=== PATIENT | male | born 1955 | race African-American/Black ===

== ENCOUNTER 2017-05-29 18:46 | Observation (INO) | payer OTHER ==
[~2017-05-29] VITALS: Ht 172.7 cm; Wt 114.0 kg
[~2017-05-29 18:46] MED LIST: ANALGESIC325 M1 PO; ASPIRIN325 MG PO; AUGMENTIN875 MG PO; Colace PO; ERYTHROMYC1 APPLICAT RIGHT EYE; Ecotrin PO; Tylenol Regular Stre PO; ZESTRIL,PRINIVI20 MG PO; Zestril,Prinivil PO
[2017-05-29 19:53] LABS: HEMATOCRIT 40.8 % (38.0-50.0); MCH 30.8 PG (29.0-34.0); MCHC 34.6 G/DL (30.0-36.0); MCV 89.1 FL (86-99); PLATELET COUNT 274 K/uL (156-360); RBC DIS.WIDTH-CV 12.9 % (11.8-14.6); RBC DIS.WIDTH-SD 42.1 % (39-53); RED BLOOD COUNT 4.58 M/uL (4.00-5.50)
[2017-05-29 20:04] LABS: CHLORIDE 104 mEq/L (99-109); POTASSIUM 3.6 mEq/L (3.7-5.4); SODIUM 138 mEq/L (136-147)
[2017-05-29 20:05] LABS: MAGNESIUM 2.1 mg/dL (1.3-2.7)
[2017-05-29 20:06] LABS: GLUCOSE 110 mg/dL (70-99)
[2017-05-29 20:07] LABS: ANION GAP 10 MEQ/L (2-14)
[2017-05-29 20:10] LABS: GFR ESTIMATE (CALCULATED) > 59 mL/min/
[2017-05-29 20:11] LABS: UREA NITROGEN (BUN) 25 mg/dL (9-23)
[2017-05-29 20:16] LABS: TROP-I INTERPRETATION NEGATIVE; TROPONIN-I < 0.01 ng/mL (0.0-0.30)
[2017-05-29 20:42] LABS: CREATINE KINASE 173 IU/L (1-294)
[2017-05-29 21:09] LABS: D-DIMER ELISA < 150.00 ng/mLDDU (<230)
[2017-05-29] MEDS ORDERED: ZESTORETIC 20-1 EAC1 PO (21:10)
[2017-05-29] MEDS ORDERED: ADVIL200 MG PO (21:14)
[2017-05-29 21:17] LABS: TOTAL BILIRUBIN 0.3 mg/dL (0.0-1.0)
[2017-05-29 21:18] LABS: ALKALINE PHOSPHATASE 52 IU/L (3-129); SERUM ETHYL ALCOHOL < 10 mg/dL
[2017-05-29 21:20] LABS: DIRECT BILIRUBIN 0.1 mg/dL (0.0-0.3)
[2017-05-29 23:20] VITALS: BP 145/79
[2017-05-30 02:49] LABS: TROP-I INTERPRETATION NEGATIVE; TROPONIN-I < 0.01 ng/mL (0.0-0.30)
[2017-05-30 03:09] LABS: ADD MIUA? NO; BILIRUBIN NEGATIVE; BLOOD NEGATIVE; COLOR STRAW ((YELLOW)); GLUCOSE (STRIP) NEGATIVE; KETONES NEGATIVE; LEUKOCYTES NEGATIVE; NITRITE NEGATIVE; PROTEIN (STRIP) NEGATIVE; SPECIFIC GRAVITY 1.026 (1.000-1.030); UROBILINOGEN 0.2 MG/DL (0.2-1.0)
[2017-05-30 03:44] LABS: HDL CHOLESTEROL 46 MG/DL (Desirable>=40); LDL CHOLESTEROL 102 mg/dL (Desirable<100); NON-HDL CHOLESTEROL 109 mg/dL (Desirable<160); TOTAL CHOLESTEROL 155 mg/dL (Desirable<200); TRIGLYCERIDES 35 MG/DL (Normal: <150)
[2017-05-30 03:48] LABS: AMPHETAMINES QUANT VALUE 0 NG/ML; BARBITUATES QUANT VALUE 0 NG/ML; BENZODIAZEPINES QUANT VALUE 0 NG/ML; BENZODIAZEPINES, URINE SCREEN Negative (200 ng/mL); MARIJUANA QUANT VALUE 0 NG/ML; OPIATES QUANTITATIVE VALUE 0 NG/ML; PHENCYCLIDINE QUANT VALUE 0 NG/ML
[2017-05-30 04:30] VITALS: BP 122/71
[2017-05-30 08:02] VITALS: BP 127/72
[2017-05-30 08:32] LABS: TROP-I INTERPRETATION NEGATIVE; TROPONIN-I < 0.01 ng/mL (0.0-0.30)
[2017-05-30 11:54] VITALS: BP 117/67
== END 2017-05-30 16:06 | disposition home or self-care (01) ==
LOC: EME 18:46 → EDOF 20:49 → 5WEST 20:49 → EDOF 20:49 → ENRESERV 20:50 → 5WEST 23:11
PROVIDERS: Physician Assistant; Physician Assistant Medical
DX: R55 Syncope and collapse (principal); R07.9 Chest pain, unspecified; R00.1 Bradycardia, unspecified; I10 Essential (primary) hypertension; E78.5 Hyperlipidemia, unspecified; Z86.73 Personal history of transient ischemic attack (TIA), and cerebral infarction without residual deficits; G47.33 Obstructive sleep apnea (adult) (pediatric); Z91.19 Patient's noncompliance with other medical treatment and regimen; R91.8 Other nonspecific abnormal finding of lung field; Z86.69 Personal history of other diseases of the nervous system and sense organs; Z79.82 Long term (current) use of aspirin; E66.9 Obesity, unspecified; Z68.38 Body mass index [BMI] 38.0-38.9, adult; Z80.0 Family history of malignant neoplasm of digestive organs; Z80.1 Family history of malignant neoplasm of trachea, bronchus and lung; Z82.0 Family history of epilepsy and other diseases of the nervous system; Z88.8 Allergy status to other drugs, medicaments and biological substances
CPT/HCPCS: 70450; 71020; 71260; 80048; 80061; 80076; 80306 90; 81003; 82550; 83735; 84443; 84484; 85027; 85379; 93005; 93306; 99281; 99285; G0378; G0480; J1650; J7030